=== PATIENT | female | born 1965 | race Two or more races ===

== ENCOUNTER 2024-05-16 23:50 | Emergency (ER) | payer BC, OTHER ==
[~2024-05-16] VITALS: Ht 160 cm; Wt 95.3 kg
[~2024-05-16 23:50] MED LIST: CARI250T PO; ESCI10TA PO; ZOLP5TAB5 PO
--- NOTE | 2024-05-17 00:34 | ED.PDOC ---
History of Present Illness HPI Comments 58-year-old female who came to emergency room via EMS for syncope. Patient went to the bathroom earlier, she feels dizzy, lightheaded, nauseated, and she fell face first in the bathroom floor. Patient currently complaining of facial pain and neck pain. Blood pressure on Scene was 73/40 mm Hg with a blood sugar of 118. Patient's blood pressure on arrival was 107/73. 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 Allergies: Coded Allergies: Levofloxacin (Verified Allergy, 04/16/10) Home Meds Reported Medications Carisoprodol (Soma) 250 Mg Tab, 250 MG PO BIDP 04/15/10 Zolpidem Tartrate (Zolpidem Tartrate) 5 Mg Tab, 5 MG PO QHSP 04/15/10 Escitalopram Oxalate (Lexapro) 10 Mg Tab, 10 MG PO DAILY 04/15/10 Information Source: Patient, Emergency Med Personnel Mode of Arrival: EMS Severity: Moderate Timing: Minutes Duration: Minutes Prehospital treatment: None Past Medical History PAST MEDICAL HISTORY: HTN Surgical History: Denies all surgeries 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 Hx Family History Family History: Reviewed,noncontributory to illness Social History Smoker: Non-Smoker Alcohol: Denies ETOH Use Drugs: Denies Drug Use Lives In: Home Constitutional: denies: chills, diaphoresis, fatigue, fever, malaise, sweats, weakness, others EENTM: denies: blurred vision, double vision, ear bleeding, ear discharge, ear drainage, ear pain, ear ringing, eye pain, eye redness, hearing loss, mouth pain, mouth swelling, nasal discharge, nose bleeding, nose congestion, nose pain, photophobia, tearing, throat pain, throat swelling, voice changes, others Respiratory: denies: cough, hemoptysis, orthopnea, SOB at rest, shortness of breath, SOB with excertion, stridor, wheezing, others Cardiovascular: denies: chest pain, dizzy spells, diaphoresis, Dyspnea on exertion, edema, irregular heart beat, left arm pain, lightheadedness, palpitations, PND, syncope, others Gastrointestinal: reports: nausea; denies: abdomen distended, abdominal pain, blood streaked bowels, constipated, diarrhea, dysphagia, difficulty swallowing, hematemesis, melena, poor appetite, poor fluid intake, rectal bleeding, rectal pain, vomiting, others Genitourinary: denies: abnormal vagina bleeding, burning, dyspareunia, dysuria, flank pain, frequency, hematuria, incontinence, pain, , vagina discharge, urgency, others Neurological: reports: dizziness, headache; denies: fainting, left sided numbness, left sided weakness, numbness, paresthesia, pre-existing deficit, right sided numbness, right sided weakness, seizure, speech problems, tingling, tremors, weakness, others Musculoskeletal: reports: neck pain; denies: back pain, gout, joint pain, joint swelling, muscle pain, muscle stiffness, others Integumetry: denies: bruises, change in color, change in hair/nails, dryness, laceration, lesions, lumps, rash, wounds, others Allergic/Immunocompromised: denies: Difficulty Healing, Frequent Infections, Hives, Itching, others Hematologic/Lymphatic: denies: anemia, blood clots, easy bleeding, easy bruising, swollen glands, others Endocrine: denies: excessive hunger, excessive sweating, excessive thirst, excessive urination, flushing, intolerance to cold, intolerance to heat, unexplained weight gain, unexplained weight loss, others Psychiatric: denies: anxiety, bipolar disorder, depression, hopeless, panic disorder, schizophrenia, sleepless, suicidal, others Physical Exam General Appearance: Moderate Distress (Zmzx-ay-xmwsiikl distress due to facial pain concerns, neck pain and anxiety related to her syncopal event.), Normal HEENT: Head (Very mild swelling noted to upper lip region. No blood loss noted in bilateral nares. No signs of intraoral laceration. No dental trauma.), Normal ENT Inspection, Pharynx Normal, TMs Normal Neck: Full Range of Motion, Non-Tender, Normal, Normal Inspection Respiratory: Chest Non-Tender, Lungs Clear, No Accessory Muscle Use, No Respiratory Distress, Normal Breath Sounds Cardiovascular: No Edema, No JVD, No Murmur, No Gallop, Normal Peripheral Pulses, Regular Rate/Rhythm Breast Exam: Deferred Gastrointestinal: No Pulsatile Mass, Normal Bowel Sounds, Soft Genitalia: Deferred Pelvic: Deferred Rectal: Deferred Extremities: No calf tenderness, Normal capillary refill, Normal range of motion, Non-tender Musculoskeletal : Apperance: Normal Neurologic: Alert, No Motor Deficits, Normal Mood, No Sensory Deficits Cerebellar Function: NOT DONE Reflexes: NOT DONE Skin: Dry, Normal Color, Warm Lymphatic: No Adenopathy Was a procedure done? Was a procedure done?: No Differential Dx Considerations may include: Anemia, electrolyte imbalance, syncope, head trauma, hypotension, intracranial mass, vasovagal, sepsis X-Ray, Labs, Meds, VS Vital Signs Date Time Temp Pulse Resp B/P (MAP) Pulse Ox O2 Delivery O2 Flow Rate FiO2 05/17/24 00:25 98.0 70 22 107/73 (84) 95 Lab Test 05/17/24 00:48 Range/Units White Blood Count 6.1 4.4-10.8 10^3/uL Red Blood Count 4.47 4.0-5.20 10^6/uL Hemoglobin 13.2 12.2-16.2 g/dL Hematocrit 39.3 36.0-46.0 % Mean Corpuscular Volume 87.9 80.0-100.0 fL Mean Corpuscular Hemoglobin 29.5 28.0-32.0 pg Mean Corpuscular Hemoglobin Concent 33.5 32.0-36.0 g/dL Red Cell Distribution Width 14.2 11.8-14.3 % Platelet Count 191 140-450 10^3/uL Mean Platelet Volume 8.7 6.9-10.8 fL Neutrophils (%) (Auto) 61.3 37.0-80.0 % Lymphocytes (%) (Auto) 27.3 10.0-50.0 % Monocytes (%) (Auto) 7.4 0.0-12.0 % Eosinophils (%) (Auto) 3.5 0.0-7.0 % Basophils (%) (Auto) 0.5 0.0-2.0 % Neutrophils # (Auto) 3.7 1.6-8.6 10 ^3/uL Lymphocytes # (Auto) 1.7 0.4-5.4 10 ^3/uL Monocytes # (Auto) 0.5 0-1.3 10 ^3/uL Eosinophils # (Auto) 0.2 0-0.8 10 ^3/uL Basophils # (Auto) 0 0-0.2 10 ^3/uL Nucleated Red Blood Cells 0.1 % Sodium Level 137 136-145 mmol/L Potassium Level 3.7 3.5-5.1 mmol/L Chloride Level 106 98-107 mmol/L Carbon Dioxide Level 22 20-31 mmol/L Anion Gap 9 5-15 Blood Urea Nitrogen 12 9-23 mg/dL Creatinine 0.64 0.550-1.02 mg/dL Glomerular Filtration Rate Calc 102 >90 mL/min BUN/Creatinine Ratio 18.8 10.0-20.0 Serum Glucose 198 H 74-106 mg/dL Calcium Level 9.5 8.7-10.4 mg/dL B-Type Natriuretic Peptide 4.00 0-100 pg/mL Lipase 44 12-53 U/L Current Medications Medications (Trade) Dose Ordered Sig/Rehan Route Start Time Stop Time Status Last Admin Acetaminophen/ Hydrocodone Bitart ([place] 5/325MG Tab) 1 tab ONCE ONCE PO 05/17/24 00:30 05/17/24 00:31 DC 05/17/24 01:15 Ondansetron HCl (Zofran Po) 4 mg ONCE ONCE PO 05/17/24 00:30 05/17/24 00:31 DC 05/17/24 01:15 X-Ray, Labs, Meds, VS Comment All studies performed the ED were evaluated by me personally. Urinalysis and cervical spine series was pending at time of this note. Patient's laboratories were unremarkable for any systemic process. EKG revealed a sinus rhythm with a rate of 68, nonspecific T-wave abnormalities and lateral leads as well as baseline wander in leads two an AVR. MS interval of 174 and QT interval 437. Unremarkable EKG. Head CT was unremarkable for any acute intracranial process. No subarachnoid hemorrhage or masses noted. Patient care will be transferred to Dr. Peguero for evaluation of cervical spine series and urine when returned. Once reviewed, he will respond accordingly. Time of 1ST Reevaluation: 02:26 Reevaluation 1ST: Improved Consultation: PCP Patient Education/Counseling: Diagnosis, Treatment Family Education/Counseling: Diagnosis, Treatment, No Family Present Departure 1 Departure Time of Disposition: 02:27 Impression: Primary Impression: Vasovagal episode Additional Impression: Facial trauma Disposition: 30 STILL A PATIENT Condition: Stable Discharged With: Self Critical Care Note Critical Care Time?: No Stability Stability form required: No Heart Score Heart Score: Heart Score Response (Comments) Value History Slightly Suspicious 0 EKG Repolarization Disturb 1 Age 45-64 1 Risk Factors 1 or 2 risk factors 1 Troponin Normal limit 0 Total 3 I personally scribed for CEZAR TAYLOR PAC ([email or web address]) on 05/17/24 at 00:34. Electronically submitted by Edmar Wilhelm ([facility]). CEZAR TAYLOR PAC May 17, 2024 00:34
[2024-05-17 01:15] LABS: Chloride 106 mmol/L (98-107); Potassium 3.7 mmol/L (3.5-5.1); Sodium 137 mmol/L (136-145)
[2024-05-17] MEDS: HYDROcodone-ACET 5/325MG TAB PO ONE (01:15)
[2024-05-17] MEDS: ONDANSETRON ODT 4 MG TAB PO ONE (01:15)
[2024-05-17 01:16] LABS: Anion Gap 9 (5-15); Calcium 9.5 mg/dL (8.7-10.4); Carbon Dioxide 22 mmol/L (20-31)
--- NOTE | 2024-05-17 01:18 | DVH ---
CT HEAD WITHOUT CONTRAST INDICATION: Syncope/facial trauma COMPARISON: None TECHNIQUE: CT of the head without intravenous contrast. RADIATION DOSE: CTDIvol: mGy, DLP: mGy*cm FINDINGS: There is no evidence of intracranial hemorrhage, infarct, extra-axial collection, mass effect, midli ne shift, herniation or hydrocephalus. The ventricles, sulci and cisterns are normal. The limon-whit e differentiation is normal. Visualized paranasal sinuses and mastoid air cells are clear. Soft tis sues and osseous structures are unremarkable. IMPRESSION: No abnormality demonstrated.
[2024-05-17 01:21] LABS: BUN/Creatinine Ratio 18.8 (10.0-20.0); Blood Urea Nitrogen 12 mg/dL (9-23); Lipase 44 U/L (12-53)
[2024-05-17 01:23] LABS: Glucose 198 mg/dL (74-106)
[2024-05-17 01:30] VITALS: PULSE 69; RESP 18; TEMP 98.4; O2SAT 96
[2024-05-17 01:39] LABS: Basophils # (auto) 0 10 ^3/uL (0-0.2); Basophils % (auto) 0.5 % (0.0-2.0); Eosinophils # (auto) 0.2 10 ^3/uL (0-0.8); Eosinophils % (auto) 3.5 % (0.0-7.0); Hematocrit 39.3 % (36.0-46.0); Hemoglobin 13.2 g/dL (12.2-16.2); Lymphocytes # (auto) 1.7 10 ^3/uL (0.4-5.4); Lymphocytes % (auto) 27.3 % (10.0-50.0); Mean Corpuscular Hemoglobin 29.5 pg (28.0-32.0); Mean Corpuscular Hgb Conc. 33.5 g/dL (32.0-36.0); Mean Corpuscular Volume 87.9 fL (80.0-100.0); Monocytes # (auto) 0.5 10 ^3/uL (0-1.3); Monocytes % (auto) 7.4 % (0.0-12.0); Neutrophils # (auto) 3.7 10 ^3/uL (1.6-8.6); Neutrophils % (auto) 61.3 % (37.0-80.0); Nucleated Red Blood Cells % 0.1 %; Platelet Count (auto) 191 10^3/uL (140-450); Red Blood Cells 4.47 10^6/uL (4.0-5.20); Red Cell Distribution Width 14.2 % (11.8-14.3); White Blood Cell 6.1 10^3/uL (4.4-10.8)
[2024-05-17 02:46] LABS: Urine Bacteria None Seen /hpf (None Seen)
[2024-05-17 03:11] LABS: Urine Blood 1+ /uL (Negative); Urine Clarity Clear (Clear); Urine Color Light-Yellow (Yellow); Urine Protein, UAD Negative (Negative); Urine Specific Gravity 1.007 (1.001-1.035); Urine Squamous Epithelial Cell FEW /hpf (<5); Urine Urobilinogen Normal (Negative); Urine WBC 2 /HPF (0-5); Urine pH 5.5 (5.0-9.0)
[2024-05-17 03:30] VITALS: BP 112/55; PULSE 69; RESP 12; O2SAT 97
--- NOTE | 2024-05-17 03:53 | ED.PDOC ---
Departure 1 Departure Time of Disposition: 03:52 (Patient's workup is benign. We will discharge patient home with outpatient follow up) Impression: Primary Impression: Vasovagal episode Additional Impression: Facial trauma Qualified Codes: S09.93XA - Unspecified injury of face, initial encounter Disposition: HOME / SELF CARE / HOMELESS Condition: Stable Additional Instructions: Your workup today was benign. You can take Tylenol or Motrin as needed for pain. You should follow up with your regular doctor within 1 week. You should stay well rested and well hydrated. If your symptoms worsen or you have any other concerns please return to the emergency room. Discharged With: Self ADRIAN PEARCE MD May 17, 2024 03:52
--- NOTE | 2024-05-17 04:26 | DVH ---
CLINICAL INDICATION: Trauma/neck pain TECHNIQUE: 4 radiographic views of the cervical spine were obtained. Comparison: None FINDINGS/IMPRESSION: C1 through C6 are visualized. Odontoid and lateral bodies appear well approximated. Degenerative gross ges at C5-C6. No discrete displaced fracture, however given limited examination if clinical concern persists, CT is recommended.
--- NOTE | 2024-05-18 19:20 | ECG ---
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
== END 2024-05-17 04:25 | disposition home or self-care (01) ==
LOC: ER 23:50 → EDBD 23:50 → ER 05-17 04:25
DX: S09.8XXA Other specified injuries of head, initial encounter (principal); M54.2 Cervicalgia; R06.2 Wheezing; I10 Essential (primary) hypertension; Z79.899 Other long term (current) drug therapy; Z88.1 Allergy status to other antibiotic agents; W18.39XA Other fall on same level, initial encounter; Y93.89 Activity, other specified; Y92.091 Bathroom in other non-institutional residence as the place of occurrence of the external cause; Y99.8 Other external cause status
CPT/HCPCS: 36415; 70450; 72040; 80048; 81001; 83690; 83880; 85025; 93005; 99285; Q0162